=== PATIENT | female | born 1990 | race Caucasian/White ===

== ENCOUNTER 2018-12-12 01:50 | Emergency (ER) | payer OTHER ==
[2018-12-12] MEDS ORDERED: LORAZEPAM 2 MG INJ (02:56)
[2018-12-12] MEDS: LORAZEPAM 2 MG INJ IV (03:08)
[2018-12-12 03:53] LABS: ADD MAN DIFF? NO
[2018-12-12] MEDS: LORAZEPAM (2 MG/ML) INJ IV (03:56)
[2018-12-12 04:00] LABS: ADD UMIC YES; UR ASCORBIC ACID NEGATIVE (NEGATIVE); UR BILIRUBIN (Dip) NEGATIVE (NEGATIVE); UR BLOOD (Dip) 2+ mg/dL (NEGATIVE); UR CLARITY SLIGHTLY CLOUDY (CLEAR); UR COLOR YELLOW (YELLOW); UR GLUCOSE (Dip) NEGATIVE (NEGATIVE); UR KETONES (Dip) NEGATIVE (NEGATIVE); UR LEUKOCYTE ESTERASE (Dip) NEGATIVE Leu/ul (NEGATIVE); UR NITRITE (Dip) NEGATIVE (NEGATIVE); UR RBC 1 /HPF (0-5); UR SPECIFIC GRAVITY (Dip) 1.014 (1.003-1.030); UR SQUAMOUS EPITHELIAL CELL FEW /HPF (FEW); UR TOTAL PROTEIN (Dip) NEGATIVE (NEGATIVE); UR UROBILINOGEN (Dip) NEGATIVE (NEGATIVE); UR WBC 3 /HPF (0-5)
[2018-12-12 04:01] LABS: WHITE BLOOD COUNT 8.5 10^3/ul (4.8-10.8)
[2018-12-12 04:01] LABS: BASOPHILS % 0.4 % (0.0-2.0); EOSINOPHILS # 0.2 10^3/ul (0.0-0.5); EOSINOPHILS % 2.5 % (0.0-7.0); HEMATOCRIT 38.6 % (37.0-47.0); LYMPHOCYTES # 3.3 10^3/ul (0.8-2.9); LYMPHOCYTES % 38.2 % (15.0-51.0); MEAN CORPUSCULAR HEMOGLOBIN 30.3 pg (29.0-33.0); MEAN CORPUSCULAR HGB CONC 33.7 g/dl (32.0-37.0); MEAN PLATELET VOLUME 11.2 fl (7.4-10.4); MONOCYTE # 0.8 10^3/ul (0.3-0.9); MONOCYTES % 8.8 % (0.0-11.0); NEUTROPHIL # 4.2 10^3/ul (1.6-7.5); NEUTROPHILS % 49.7 % (39.0-77.0); PLATELET COUNT 271 10^3/UL (140-415); RED BLOOD COUNT 4.29 10^6/ul (4.20-5.40); RED CELL DISTRIBUTION WIDTH 12.9 % (11.5-14.5)
[2018-12-12 04:22] LABS: ANION GAP 8 (5-13); BLOOD UREA NITROGEN 14 mg/dl (7-20); CALCIUM 9.3 mg/dl (8.4-10.2); CARBON DIOXIDE 27 mmol/L (21-31); CHLORIDE 108 mmol/L (97-110); CREATININE 0.64 mg/dl (0.44-1.00); Estimated GFR > 60 mL/min (>60); GLUCOSE 94 mg/dl (70-220); POTASSIUM 4.1 mmol/L (3.5-5.1); SODIUM 143 mmol/L (135-144)
== END 2018-12-12 05:45 | disposition home or self-care (01) ==
LOC: E/R 01:50
DX: N83.202 Unspecified ovarian cyst, left side (principal)
CPT/HCPCS: 36415; 76830; 76856; 80048; 81001; 84703; 85025; 96374; 99285-25

== ENCOUNTER 2019-03-25 06:08 | Inpatient (IN) | payer OTHER ==
[~2019-03-25 06:08] MED LIST: CEFAZOLIN 2 GM/50 ML (PMX) 50 ML IVPB; DEXTROSE 5%-0.9% NACL 1,000 ML IV; LACTATED RINGER'S 1,000 ML (ENTER RATE) IV
[2019-03-25] MEDS: CEFAZOLIN 2 GM/50 ML (PMX) 50 ML IVPB ×3 (09:00→21:28)
[2019-03-25] MEDS ORDERED: FENTAnyl 50 MCG/ML VIAL IV ×2 (10:30)
[2019-03-25] MEDS ORDERED: ALBUTEROL 0.083% (NEB) 2.5 MG/3 ML AMP HHN (10:30)
[2019-03-25] MEDS ORDERED: DIPHENHYDRAMINE 50 MG INJ IV (10:30)
[2019-03-25] MEDS ORDERED: FENTAnyl 50 MCG/ML VIAL (10:34)
[2019-03-25] MEDS ORDERED: ROPIVACAINE 0.5 % 30 ML VIAL (10:36)
[2019-03-25] MEDS ORDERED: MIDAZOLAM 1 MG/ML 2 ML INJ (10:55)
[2019-03-25] MEDS ORDERED: SUGAMMADEX SODIUM 200 MG/2 ML VIAL IV (11:32)
[2019-03-25] MEDS ORDERED: LIDOCAINE 100 MG SYRINGE (11:32)
[2019-03-25] MEDS ORDERED: PROPOFOL 20 ML (11:32)
[2019-03-25] MEDS ORDERED: ROCURONIUM 50 MG INJ (11:32)
[2019-03-25] MEDS ORDERED: CEFAZOLIN 1 GM INJ (11:32)
[2019-03-25] MEDS: LACTATED RINGER'S 1,000 ML IV ×2 (11:58→22:00)
[2019-03-25] MEDS ORDERED: DIPHENHYDRAMINE 50 MG CAP PO (12:00)
[2019-03-25] MEDS ORDERED: ZOLPIDEM 5 MG TAB PO (12:00)
[2019-03-25] MEDS ORDERED: ONDANSETRON INJ 6 MG in DEXTROSE 5% 50 ML IVPB (12:00)
[2019-03-25] MEDS ORDERED: HYDROCODONE/APAP (5/325) TAB PO ×2 (12:00)
[2019-03-25] MEDS: METOCLOPRAMIDE 10 MG TAB PO ×2 (12:00→18:00)
[2019-03-25] MEDS: ONDANSETRON 4 MG INJ IV (12:13)
[2019-03-25] MEDS: HYDROmorphONE 1 MG/5 ML IV SYRINGE IV ×3 (12:14→12:41)
[2019-03-25] MEDS: MEPERIDINE 25 MG INJ IV (12:14)
[2019-03-25] MEDS: KETOROLAC 30 MG INJ IV ×3 (12:29→23:55)
[2019-03-25] MEDS: METOCLOPRAMIDE 10 MG INJ IV (12:31)
[2019-03-25 12:51] LABS: ADD UMIC NO; UR ASCORBIC ACID NEGATIVE (NEGATIVE); UR BILIRUBIN (Dip) NEGATIVE (NEGATIVE); UR BLOOD (Dip) NEGATIVE (NEGATIVE); UR CLARITY CLEAR (CLEAR); UR COLOR YELLOW (YELLOW); UR GLUCOSE (Dip) NEGATIVE (NEGATIVE); UR KETONES (Dip) NEGATIVE (NEGATIVE); UR LEUKOCYTE ESTERASE (Dip) NEGATIVE Leu/ul (NEGATIVE); UR NITRITE (Dip) NEGATIVE (NEGATIVE); UR SPECIFIC GRAVITY (Dip) 1.009 (1.003-1.030); UR TOTAL PROTEIN (Dip) NEGATIVE (NEGATIVE); UR UROBILINOGEN (Dip) NEGATIVE (NEGATIVE)
[2019-03-25] MEDS: DEXTROSE 5%-0.9% NACL 1,000 ML IV ×3 (13:44→23:54)
[2019-03-25] MEDS: ENOXAPARIN 30 MG/0.3 ML SYG SC (21:30)
[2019-03-26] MEDS: CEFAZOLIN 2 GM/50 ML (PMX) 50 ML IVPB (05:27)
[2019-03-26] MEDS: KETOROLAC 30 MG INJ IV ×3 (05:27→18:08)
[2019-03-26] MEDS: DEXTROSE 5%-0.9% NACL 1,000 ML IV (05:31)
[2019-03-26] MEDS: METOCLOPRAMIDE 10 MG TAB PO ×5 (06:00→23:19)
[2019-03-26] MEDS: LACTATED RINGER'S 1,000 ML IV (06:00)
[2019-03-26 06:07] LABS: ADD MAN DIFF? NO
[2019-03-26 06:11] LABS: BASOPHILS % 0.4 % (0.0-2.0); EOSINOPHILS # 0.1 10^3/ul (0.0-0.5); EOSINOPHILS % 1.7 % (0.0-7.0); HEMOGLOBIN 10.8 g/dl (12.0-16.0); LYMPHOCYTES # 2.6 10^3/ul (0.8-2.9); LYMPHOCYTES % 31.7 % (15.0-51.0); MEAN CORPUSCULAR HEMOGLOBIN 30.9 pg (29.0-33.0); MEAN CORPUSCULAR HGB CONC 33.8 g/dl (32.0-37.0); MEAN CORPUSCULAR VOLUME 91.4 fl (82.0-101.0); MONOCYTE # 0.8 10^3/ul (0.3-0.9); MONOCYTES % 9.5 % (0.0-11.0); NEUTROPHIL # 4.6 10^3/ul (1.6-7.5); NEUTROPHILS % 56.5 % (39.0-77.0); PLATELET COUNT 228 10^3/UL (140-415)
[2019-03-26 06:11] LABS: WHITE BLOOD COUNT 8.1 10^3/ul (4.8-10.8)
[2019-03-26 06:48] LABS: ANION GAP 3 (5-13); BLOOD UREA NITROGEN 8 mg/dl (7-20); CARBON DIOXIDE 26 mmol/L (21-31); CHLORIDE 109 mmol/L (97-110); CREATININE 0.58 mg/dl (0.44-1.00); POTASSIUM 3.6 mmol/L (3.5-5.1); SODIUM 138 mmol/L (135-144)
[2019-03-26] MEDS: ENOXAPARIN 30 MG/0.3 ML SYG SC ×2 (09:54→21:19)
[2019-03-26] MEDS: IBUPROFEN 800 MG TAB PO ×2 (13:20→21:04)
[2019-03-27] MEDS: METOCLOPRAMIDE 10 MG TAB PO (05:59)
[2019-03-27] MEDS: IBUPROFEN 800 MG TAB PO (09:26)
[2019-03-27] MEDS: ENOXAPARIN 30 MG/0.3 ML SYG SC (09:28)
== END 2019-03-27 12:10 | disposition home or self-care (01) | DRG 743 ==
LOC: REC 06:08 → 2NE 13:10
PROC: 0UB14ZZ Excision of Left Ovary, Percutaneous Endoscopic Approach (ICD-10-PCS; principal; 2019-03-25 10:30)
PROC: 0U504ZZ Destruction of Right Ovary, Percutaneous Endoscopic Approach (ICD-10-PCS; 2019-03-25 10:30)
DX: D27.1 Benign neoplasm of left ovary (principal); E28.2 Polycystic ovarian syndrome; D25.9 Leiomyoma of uterus, unspecified; N92.6 Irregular menstruation, unspecified; D27.0 Benign neoplasm of right ovary
CPT/HCPCS: 80051; 81003; 82565; 84520; 85025; 87086; 88305